=== PATIENT | male | born 1975 | race African-American/Black ===

== ENCOUNTER 2022-01-17 18:08 | Emergency (ER) | payer SELFPAY ==
[~2022-01-17] VITALS: Ht 170.2 cm; Wt 107.6 kg
[2022-01-17] MEDS ORDERED: LISINOPRIL10 MG PO (18:36)
[2022-01-17] MEDS ORDERED: METFORMIN HCL500 M2 PO (18:36)
[2022-01-17] MEDS ORDERED: ACETAMINOPHEN 325 MG TAB PO ONE (18:45)
[2022-01-17] MEDS ORDERED: IBUPROFEN 200 MG TAB PO ONE (18:45)
[2022-01-17] MEDS ORDERED: Clindamycin INJ 150 MG/ML 600 MG Vial IM ONE (18:45)
[2022-01-17] MEDS ORDERED: CLINDAMYCIN HC300 MG PO (18:52)
[2022-01-17] MEDS ORDERED: ACETAMINOPHEN500 MG PO (18:52)
[2022-01-17] MEDS ORDERED: DOXYCYCLINE HY100 MG PO (18:52)
[2022-01-17] MEDS ORDERED: IBUPROFEN200 MG PO (18:52)
[2022-01-17] MEDS ORDERED: Clindamycin INJ 300 MG/50 ML 50 ML IV ONE (19:08)
[2022-01-17] MEDS ORDERED: CLINDAMYCIN 600MG / 50ML 50 ML IV ONE (19:08)
[2022-01-18] MEDS ORDERED: NAPROSYN500 MG PO (20:54)
== END 2022-01-17 20:05 | disposition home or self-care (01) ==
LOC: FSED 18:23
DX: L02.31 Cutaneous abscess of buttock (principal); I10 Essential (primary) hypertension; E11.9 Type 2 diabetes mellitus without complications
CPT/HCPCS: 99283

== ENCOUNTER 2022-01-18 20:42 | Emergency (ER) | payer SELFPAY ==
[~2022-01-18] VITALS: Ht 172.7 cm; Wt 107.5 kg
[~2022-01-18 20:42] MED LIST: ACETAMINOPHEN500 MG PO; CLINDAMYCIN HC300 MG PO; DOXYCYCLINE HY100 MG PO; IBUPROFEN200 MG PO; LISINOPRIL10 MG PO; METFORMIN HCL500 M2 PO
[2022-01-18] MEDS ORDERED: NAPROSYN500 MG PO (20:54)
== END 2022-01-18 21:05 | disposition home or self-care (01) ==
LOC: ER 20:50
DX: L02.31 Cutaneous abscess of buttock (principal); I10 Essential (primary) hypertension; E11.9 Type 2 diabetes mellitus without complications; L03.317 Cellulitis of buttock; Z79.84 Long term (current) use of oral hypoglycemic drugs
CPT/HCPCS: 99282